=== PATIENT | male | born 1960 | race Caucasian/White ===

== ENCOUNTER 2018-09-23 12:00 | Observation (INO) ==
[2018-09-23 12:11] VITALS: BMI 24.0
--- NOTE | 2018-09-23 12:33 | DR.CP ---
HPI Time Seen Time Seen by Provider: 09/23/18 12:32 PCP Primary Care Physician: YAYO CROSS Complaint Chief Complaint:: BURNING ON LEFT SIDE OF CHEST WITH SMALL SHOOTING PAIN. DENIES HEAVINESS. SOME NAUSEA AT TIMES. BLOOD PRESSURE ELEVATED FOR COUPLE OF DAYS AND PAIN BEEN FOR ABOUT WEEK TO TWO WEEKS. Self Treatment fo Chief Complaint: WENT TO PRIMARY CARE AND GAVE NEW RX FOR BLOOD PRESSURE AND MEDS TO HELP REST AT NIGHT. Source History Provided: Patient Mode of Arrival Mode of Arrival: Ambulatory Timing Onset of Chief Complaint: 09/09/18 Location Chest Pain Radiation Location: None Associated Signs and Symptoms Associated Signs and Symptoms: None PMH PMH Past Medical History: Yes Past Medical History: Anxiety and Hypertension Past Surgical History: No Family History History of Family Medical Conditions: Yes Family Medical History: Heart Failure and Hypertension Social History Type of Tobacco Use: Cigarettes Does any household member use tobacco: No Alcohol Use: Occasionally and DAILY Do you use any recreational Drugs:: No Lives With: Alone and Spouse Lives Where: Home infectious screening In the last 2 months have you had wt loss of >10#?: NO Have you had fever, night sweats or hemotysis?: No Have you traveled outside the country in the last 6 months?: No Isolation: Standard PE Vitals Vitals: Temperature 98.1 F Pulse Rate [Left Brachial] 78 Pulse Rate 85 Respiratory Rate 18 Blood Pressure [Left Arm] 151/75 Blood Pressure 188/93 O2 Sat by Pulse Oximetry 98 General Limitations: No Limitations and Language Barrier General Appearance: Alert and In No Apparent Distress Head Head Exam: Normal Inspection, Atraumatic and Normocephalic Eyes Eye exam: Normal Appearance, PERRL and EOMI ENT ENT Exam: Normal Exam, Normal Oropharynx, Normal External Ear Exam, Mucous Membranes Moist and TM's Normal Bilaterally Chest Chest Inspection: Normal Inspection and Symmetric Chest Wall Rise Respiratory Respiratory Exam: Bilateral: Clear to Auscultation Cardiovascular Cardiovascular Exam: Regular Rate and Normal Rhythm Pulse: Normal and Radial Extremities Extremities Exam: Normal Inspection and Full ROM Back Back Exam: Normal Inspection and Full ROM Neurologic Neurological Exam: Alert, Oriented X3 and CN II-XII Intact Psychiatric Psychiatric Exam: Normal Affect and Normal Mood Skin Skin Exam: Warm, Dry, Intact, Normal Color and Rash COURSE Consultation Called: 13:55 Consultation Comments: Dr. Huizar agreed to admit for further evaluation for chest pain [facility] Labs Reviewed Laboratory Results Reviewed?: Yes Result Diagrams: 09/24/18 04:29 09/23/18 12:40 Laboratory: WBC 7.1 X10^3/uL (3.6-10.0) 09/24/18 04:29 RBC 4.85 X10^6/uL (4.7-6.0) 09/24/18 04:29 Hgb 16.2 g/dL (13.5-18.0) 09/24/18 04:29 Hct 46.9 % (42.0-54.0) 09/24/18 04:29 MCV 96.7 fL (80.0-100.0) 09/24/18 04:29 MCH 33.5 pg (27.0-34.0) 09/24/18 04:29 MCHC 34.6 g/dL (33.0-35.0) 09/24/18 04:29 RDW 13.4 % (11.6-16.5) 09/24/18 04:29 Plt Count 233 X10^3/uL (150.0-450.0) 09/24/18 04:29 MPV 9.3 fL (7.4-11.0) 09/24/18 04:29 Neut % (Auto) 56.8 % (42.0-75.0) 09/24/18 04:29 Lymph % (Auto) 30.0 % (21.0-51.0) 09/24/18 04:29 [place] % (Auto) 10.5 % (0.0-13.0) 09/24/18 04:29 Eos % (Auto) 1.7 % (0.9-2.9) 09/24/18 04:29 Baso % (Auto) 1.0 % (0.2-1.0) 09/24/18 04:29 Neut # (Auto) 4.0 x10^3/uL (2.2-4.8) 09/24/18 04:29 Lymph # (Auto) 2.1 X10^3/uL (1.3-2.9) 09/24/18 04:29 [place] # (Auto) 0.8 x10^3/uL (0.3-0.8) 09/24/18 04:29 Eos # (Auto) 0.1 x10^3/uL (0.0-0.2) 09/24/18 04:29 Baso # (Auto) 0.1 X10^3/uL (0.0-0.1) 09/24/18 04:29 Absolute Nucleated RBC 0.1 /100WBC 09/24/18 04:29 INR Target Range - 09/23/18 12:40 INR 1.12 (0.8-1.3) 09/23/18 12:40 APTT 31.4 SECONDS (22.9-36.5) 09/23/18 12:40 PTT Comment - 09/23/18 12:40 Sodium 136 mmol/L (136-145) 09/23/18 12:40 Corrected Sodium TNP 09/23/18 12:40 Potassium 4.0 mmol/L (3.5-5.1) 09/23/18 12:40 Chloride 97 mmol/L (98-107) L 09/23/18 12:40 Carbon Dioxide 30.5 mmol/L (21-32) 09/23/18 12:40 BUN 9 mg/dL (7-18) 09/23/18 12:40 Creatinine 0.92 mg/dL (0.70-1.30) 09/23/18 12:40 Est GFR (MDRD) Af Amer > 60 (>60) 09/23/18 12:40 Est GFR (MDRD) Non-Af > 60 (>60) 09/23/18 12:40 Glucose 98 mg/dL (65-99) 09/23/18 12:40 Calcium 9.2 mg/dL (8.5-10.1) 09/23/18 12:40 Corrected Calcium TNP 09/23/18 12:40 Magnesium 1.7 mg/dL (1.7-2.9) 09/23/18 12:40 Total Bilirubin 0.50 mg/dL (0.2-1.0) 09/23/18 12:40 AST 15 Units/L (15-37) 09/23/18 12:40 ALT 28 Units/L (12-78) 09/23/18 12:40 Alkaline Phosphatase 95 Units/L (46-116) 09/23/18 12:40 Creatine Kinase 36 Units/L (39-308) L 09/24/18 00:25 CK-MB (CK-2) < 1.0 ng/mL (0-4.0) 09/24/18 00:25 CK/CKMB % Calc 2.8 % (<4) 09/24/18 00:25 Troponin I < 0.02 ng/mL (0-1.5) 09/24/18 00:25 Total Protein 7.8 g/dL (6.4-8.2) 09/23/18 12:40 Albumin 3.9 g/dL (3.4-5.0) 09/23/18 12:40 Globulin 3.9 g/dL (2.5-4.5) 09/23/18 12:40 Albumin/Globulin Ratio 1.0 Ratio (1.1-2.1) L 09/23/18 12:40 Other Results Comments: Chest: No acute cardiopulmonary disease XRAY XRAY Interpreted by: Radiologist Diagnosis Discharge Problem: Chest pain
[2018-09-23 12:52] LABS: BASOPHILS % (AUTO) 0.5 % (0.2-1.0); EOSINOPHILS # (AUTO) 0.1 x10^3/uL (0.0-0.2); EOSINOPHILS % (AUTO) 1.1 % (0.9-2.9); HEMATOCRIT 49.1 % (42.0-54.0); HEMOGLOBIN 17.1 g/dL (13.5-18.0); LYMPHOCYTES # (AUTO) 1.8 X10^3/uL (1.3-2.9); MEAN CORPUSCULAR HEMOGLOBIN 33.7 pg (27.0-34.0); MEAN CORPUSCULAR HGB CONC 34.8 g/dL (33.0-35.0); MEAN PLATELET VOLUME 8.8 fL (7.4-11.0); MONOCYTES # (AUTO) 0.9 x10^3/uL (0.3-0.8); MONOCYTES % (AUTO) 12.5 % (0.0-13.0); NEUTROPHILS # (AUTO) 4.2 x10^3/uL (2.2-4.8); NEUTROPHILS % (AUTO) 59.9 % (42.0-75.0); PLATELET COUNT 228 X10^3/uL (150.0-450.0); RED BLOOD COUNT 5.06 X10^6/uL (4.7-6.0); RED CELL DISTRIBUTION WIDTH 13.7 % (11.6-16.5); WHITE BLOOD COUNT 6.9 X10^3/uL (3.6-10.0)
[2018-09-23 13:06] LABS: BLOOD UREA NITROGEN 9 mg/dL (7-18); CALCIUM 9.2 mg/dL (8.5-10.1); CARBON DIOXIDE 30.5 mmol/L (21-32); CHLORIDE 97 mmol/L (98-107); CREATININE 0.92 mg/dL (0.70-1.30); SODIUM 136 mmol/L (136-145); TROPONIN I < 0.02 ng/mL (0-1.5); eGFR NON BLACK RACES > 60 (>60)
[2018-09-23 13:10] LABS: ALANINE AMINOTRANSFERASE 28 Units/L (12-78); ALBUMIN 3.9 g/dL (3.4-5.0); ALKALINE PHOSPHATASE 95 Units/L (46-116); ASPARTATE AMINO TRANSFERASE 15 Units/L (15-37); CKMB % 2.9 % (<4); CREATINE KINASE 35 Units/L (39-308); CREATINE KINASE MB < 1.0 ng/mL (0-4.0); MAGNESIUM 1.7 mg/dL (1.7-2.9); TOTAL PROTEIN 7.8 g/dL (6.4-8.2)
--- NOTE | 2018-09-23 13:42 | RAD ---
HISTORY: Chest pain Study: Single-view chest Comparison: None Findings: The trachea is midline. The cardiac silhouette is unremarkable. Lungs demonstrate chronic interstitial changes suggesting COPD without focal infiltrate or effusion.. The bony thorax is unremarkable. IMPRESSION: 1. No acute cardiopulmonary disease. Reported By:
[2018-09-23] MEDS ORDERED: NS 1000 ML 1,000 ML ONE (16:00)
[2018-09-23] MEDS: NS 1000 ML 1,000 ML IV SCH (16:01)
[2018-09-23 19:49] LABS: CREATINE KINASE 36 Units/L (39-308); CREATINE KINASE MB < 1.0 ng/mL (0-4.0); TROPONIN I < 0.02 ng/mL (0-1.5)
[2018-09-23 19:54] LABS: CKMB % 2.8 % (<4)
[2018-09-23] MEDS ORDERED: ATIVAN TAB 1 MG PO PRN (20:34)
[2018-09-24 01:13] LABS: CKMB % 2.8 % (<4); CREATINE KINASE 36 Units/L (39-308); CREATINE KINASE MB < 1.0 ng/mL (0-4.0); TROPONIN I < 0.02 ng/mL (0-1.5)
[2018-09-24] MEDS: NS 1000 ML 1,000 ML IV SCH ×4 (03:32→20:41)
[2018-09-24 05:17] LABS: BASOPHILS # (AUTO) 0.1 X10^3/uL (0.0-0.1); EOSINOPHILS # (AUTO) 0.1 x10^3/uL (0.0-0.2); EOSINOPHILS % (AUTO) 1.7 % (0.9-2.9); HEMATOCRIT 46.9 % (42.0-54.0); HEMOGLOBIN 16.2 g/dL (13.5-18.0); LYMPHOCYTES # (AUTO) 2.1 X10^3/uL (1.3-2.9); MEAN CORPUSCULAR HEMOGLOBIN 33.5 pg (27.0-34.0); MEAN CORPUSCULAR HGB CONC 34.6 g/dL (33.0-35.0); MEAN CORPUSCULAR VOLUME 96.7 fL (80.0-100.0); MEAN PLATELET VOLUME 9.3 fL (7.4-11.0); MONOCYTES # (AUTO) 0.8 x10^3/uL (0.3-0.8); MONOCYTES % (AUTO) 10.5 % (0.0-13.0); NEUTROPHILS % (AUTO) 56.8 % (42.0-75.0); PLATELET COUNT 233 X10^3/uL (150.0-450.0); RED BLOOD COUNT 4.85 X10^6/uL (4.7-6.0); RED CELL DISTRIBUTION WIDTH 13.4 % (11.6-16.5); WHITE BLOOD COUNT 7.1 X10^3/uL (3.6-10.0)
[2018-09-24 05:36] LABS: ALANINE AMINOTRANSFERASE 26 Units/L (12-78); ALBUMIN 3.5 g/dL (3.4-5.0); ALKALINE PHOSPHATASE 83 Units/L (46-116); ASPARTATE AMINO TRANSFERASE 14 Units/L (15-37); BLOOD UREA NITROGEN 11 mg/dL (7-18); CALCIUM 8.7 mg/dL (8.5-10.1); CARBON DIOXIDE 27.2 mmol/L (21-32); CHLORIDE 101 mmol/L (98-107); CHOL/HDL RATIO 3.8 (0.0-5.0); CHOLESTEROL 134 mg/dL (0-200); CREATININE 0.67 mg/dL (0.70-1.30); HDL CHOLESTEROL 35 mg/dL (40-60); SODIUM 137 mmol/L (136-145); TRIGLYCERIDES 69 mg/dL (0-150); eGFR NON BLACK RACES > 60 (>60)
[2018-09-24] MEDS ORDERED: K-RIDER 10 MEQ/NS 100 ML 10 MEQ/100 ML BAG IV PRN (06:09)
[2018-09-24] MEDS ORDERED: KLOR-CON PO PRN (06:09)
[2018-09-24] MEDS ORDERED: POTASSIUM CHLORIDE LIQ 20 MEQ UDC PO PRN (06:09)
[2018-09-24] MEDS ORDERED: POTASSIUM CHL 40 MEQ/NS 0.45% 500 ML IV PRN (06:09)
[2018-09-24] MEDS ORDERED: MICRO K EXTEN CAP 10 MEQ PO PRN (06:09)
[2018-09-24] MEDS ORDERED: POTASSIUM CHL 60 MEQ/NS 0.45% 500 ML IV PRN (06:09)
[2018-09-24] MEDS: K-DUR TAB 20 MEQ PO PRN (06:37)
[2018-09-24] MEDS: MAGNESIUM SULFATE 1 GRAM/100 mL PREMIX 1 GM/100 ML BAG IV PRN ×3 (06:41→14:48)
[2018-09-24] MEDS: ASPIRIN PO SCH (09:10)
[2018-09-24] MEDS: NORCO 10/325 TAB PO SCH ×4 (09:10→20:38)
[2018-09-24] MEDS: ZESTORETIC 20/25 MG PO SCH (09:10)
[2018-09-24] MEDS ORDERED: KLONOPIN TAB 1 MG PO PRN (10:33)
[2018-09-24] MEDS: NICOTINE PATCH TD SCH (12:35)
--- NOTE | 2018-09-24 13:39 | PCM.PROG ---
Progress Note - Progress Note for Day of Date of Exam: 09/24/18 - Subjective Subjective: WAS ADMITTED FOR CHEST PAIN RULE OUT ACUTE IA. TODAY, HE IS ALERT AND ORIENTED, LYING IN BED ON MORNING ROUNDS. HE CONTINUES WITH INTERMITTENT CHEST PAIN. HE STATES THAT HE FEELS LIKE HIS BLOOD PRESSURE IS GETTING HIGHER THIS MORNING. ON EXAMINATION, HEART IS REGULAR IN RATE AND RHYT HM. BILATERAL LUNGS ARE CLEAR TO AUSCULTATION. ABDOMEN IS ROUND, SOFT, AND NON- TENDER WITH NORMAL BOWEL SOUNDS NOTED IN ALL QUADRANTS. HIS VITLAS THIS MORNING ARE 98.0-82-18-98%-186/81. LABS WERE OBTAINED. ABNORMAL LAB VALUES INCLUDE THE FOLLOWING: CREATININE 0.67, AST 14, HDL 35. CARDIAC ENZYMES AND EKGS HAVE BEEN WITHIN NORMAL LIMITS. HIS BLOOD PRESSURE MEDICATIONS WERE RESUMED THIS MORNING. WE WILL INCREASE THE METOPROLOL TO 25MG PO DAILY, ADD NORVASC 5MG PO HS. WE WILL OBTAIN AN ECHO AND A CAROTID DOPPLER. OTHERWISE, WE WILL CONTINUE TO MONITOR HIM ON TELEMETRY. WE WILL FOLLOW UP WITH AM LABS. - Past Medical Family Social History Past Med/Fam/Surg Hx: No changes since H&P Allergies: Allergies No Known Drug Allergies Allergy (Verified 09/23/18 12:12) - Review of Systems ROS: No change since H&P - Vital Signs and I&O's Vital Signs: Temperature 98.0 F Pulse Rate [Left Brachial] 62 Pulse Rate 85 Respiratory Rate 20 Blood Pressure [Left Arm] 167/84 Blood Pressure 188/93 O2 Sat by Pulse Oximetry 100 Intake and Output: Intake & Output 09/22/18 09/23/18 09/24/18 09/25/18 11:59 11:59 11:59 11:59 Intake Total 1340 / 1340 Balance 1340 / 1340 - Physical Exam Oriented: Normal Eyes: Normal Ear: Normal Nose: Normal Throat: Normal Respiratory: Normal Cardiovascular: Normal. negative: S3, S4, Murmur : Normal Auscultation: Bowel Sounds: Normal Palpation: Normal Tenderness: Normal Skin: Normal Musculoskeletal: Normal Psychiatric: Normal Mood Description: Calm Affect: Normal Speech Pattern: Clear, Appropriate - Laboratory and Diagnostics Result Diagrams: 09/24/18 04:29 09/24/18 04:29 Labs: Laboratory WBC 7.1 X10^3/uL (3.6-10.0) 09/24/18 04:29 RBC 4.85 X10^6/uL (4.7-6.0) 09/24/18 04:29 Hgb 16.2 g/dL (13.5-18.0) 09/24/18 04:29 Hct 46.9 % (42.0-54.0) 09/24/18 04:29 MCV 96.7 fL (80.0-100.0) 09/24/18 04:29 MCH 33.5 pg (27.0-34.0) 09/24/18 04:29 MCHC 34.6 g/dL (33.0-35.0) 09/24/18 04:29 RDW 13.4 % (11.6-16.5) 09/24/18 04:29 Plt Count 233 X10^3/uL (150.0-450.0) 09/24/18 04:29 MPV 9.3 fL (7.4-11.0) 09/24/18 04:29 Neut % (Auto) 56.8 % (42.0-75.0) 09/24/18 04:29 Lymph % (Auto) 30.0 % (21.0-51.0) 09/24/18 04:29 [place] % (Auto) 10.5 % (0.0-13.0) 09/24/18 04:29 Eos % (Auto) 1.7 % (0.9-2.9) 09/24/18 04:29 Baso % (Auto) 1.0 % (0.2-1.0) 09/24/18 04:29 Neut # (Auto) 4.0 x10^3/uL (2.2-4.8) 09/24/18 04:29 Lymph # (Auto) 2.1 X10^3/uL (1.3-2.9) 09/24/18 04:29 [place] # (Auto) 0.8 x10^3/uL (0.3-0.8) 09/24/18 04:29 Eos # (Auto) 0.1 x10^3/uL (0.0-0.2) 09/24/18 04:29 Baso # (Auto) 0.1 X10^3/uL (0.0-0.1) 09/24/18 04:29 Absolute Nucleated RBC 0.1 /100WBC 09/24/18 04:29 INR Target Range - 09/23/18 12:40 INR 1.12 (0.8-1.3) 09/23/18 12:40 APTT 31.4 SECONDS (22.9-36.5) 09/23/18 12:40 PTT Comment - 09/23/18 12:40 Sodium 137 mmol/L (136-145) 09/24/18 04:29 Corrected Sodium TNP 09/24/18 04:29 Potassium 3.5 mmol/L (3.5-5.1) 09/24/18 04:29 Chloride 101 mmol/L (98-107) 09/24/18 04:29 Carbon Dioxide 27.2 mmol/L (21-32) 09/24/18 04:29 BUN 11 mg/dL (7-18) 09/24/18 04:29 Creatinine 0.67 mg/dL (0.70-1.30) L 09/24/18 04:29 Est GFR (MDRD) Af Amer > 60 (>60) 09/24/18 04:29 Est GFR (MDRD) Non-Af > 60 (>60) 09/24/18 04:29 Glucose 98 mg/dL (65-99) 09/24/18 04:29 Calcium 8.7 mg/dL (8.5-10.1) 09/24/18 04:29 Corrected Calcium TNP 09/24/18 04:29 Magnesium 1.7 mg/dL (1.7-2.9) 09/24/18 04:29 Total Bilirubin 0.50 mg/dL (0.2-1.0) 09/24/18 04:29 AST 14 Units/L (15-37) L 09/24/18 04:29 ALT 26 Units/L (12-78) 09/24/18 04:29 Alkaline Phosphatase 83 Units/L (46-116) 09/24/18 04:29 Creatine Kinase 36 Units/L (39-308) L 09/24/18 00:25 CK-MB (CK-2) < 1.0 ng/mL (0-4.0) 09/24/18 00:25 CK/CKMB % Calc 2.8 % (<4) 09/24/18 00:25 Troponin I < 0.02 ng/mL (0-1.5) 09/24/18 00:25 Total Protein 7.0 g/dL (6.4-8.2) 09/24/18 04:29 Albumin 3.5 g/dL (3.4-5.0) 09/24/18 04:29 Globulin 3.5 g/dL (2.5-4.5) 09/24/18 04:29 Albumin/Globulin Ratio 1.0 Ratio (1.1-2.1) L 09/24/18 04:29 Triglycerides 69 mg/dL (0-150) 09/24/18 04:29 Cholesterol 134 mg/dL (0-200) 09/24/18 04:29 LDL Cholesterol, Calc 85 mg/dL (0-100) 09/24/18 04:29 HDL Cholesterol 35 mg/dL (40-60) L 09/24/18 04:29 Cholesterol/HDL Ratio 3.8 (0.0-5.0) 09/24/18 04:29 - Plan (1) Chest pain Status: Acute Qualifiers: Chest pain type: unspecified Qualified Code(s): R07.9 - Chest pain, unspecified Plan: TELEMETRY, SUPPLEMENTAL OXYGEN, OBTAIN ECHO AND CAROTID DOPPLER, CONTINUE TO MONITOR. (2) Hypertension Status: Acute Qualifiers: Hypertension type: essential hypertension Qualified Code(s): I10 - Essential (primary) hypertension Plan: CONTINUE LISINOPRIL/HCTZ, INCREASE TOPROL XL TO 25MG PO HS, ADD NORVASC 5MG PO HS, CONTINUE TO MONITOR
--- NOTE | 2018-09-24 14:47 | VAS ---
side.Exam: Carotid Doppler exam History: 58-year-old male with hypertension. Evaluate for possible carotid artery stenosis. Comparison: None Findings: Mild degree of plaque is present in both carotid systems. On the right, peak systolic velocities in cm/sec of the right internal and common carotid arteries measure 103 and 136 respectively. The greatest ICA/CCA ratio on the right is 0.76 On the left, peak systolic velocities in cm/sec of the left internal and common carotid arteries measure 99 and 138 respectively. The greatest ICA/CCA ratio on the left is 0.72. Antegrade flow is documented in patent vertebral arteries bilaterally. Impression: No hemodynamically significant carotid stenosis is seen on either Reported By:
[2018-09-24] MEDS ORDERED: TOPROL XL PO SCH ×2 (21:00)
[2018-09-24] MEDS ORDERED: NORVASC TAB 5 MG PO SCH (21:00)
[2018-09-25 05:23] LABS: BASOPHILS # (AUTO) 0.1 X10^3/uL (0.0-0.1); BASOPHILS % (AUTO) 0.9 % (0.2-1.0); EOSINOPHILS # (AUTO) 0.1 x10^3/uL (0.0-0.2); EOSINOPHILS % (AUTO) 2.1 % (0.9-2.9); HEMATOCRIT 44.3 % (42.0-54.0); HEMOGLOBIN 15.2 g/dL (13.5-18.0); LYMPHOCYTES # (AUTO) 2.6 X10^3/uL (1.3-2.9); LYMPHOCYTES % (AUTO) 37.7 % (21.0-51.0); MEAN CORPUSCULAR HEMOGLOBIN 33.6 pg (27.0-34.0); MEAN CORPUSCULAR HGB CONC 34.3 g/dL (33.0-35.0); MEAN CORPUSCULAR VOLUME 97.9 fL (80.0-100.0); MEAN PLATELET VOLUME 9.3 fL (7.4-11.0); MONOCYTES # (AUTO) 0.9 x10^3/uL (0.3-0.8); MONOCYTES % (AUTO) 13.4 % (0.0-13.0); NEUTROPHILS # (AUTO) 3.2 x10^3/uL (2.2-4.8); NEUTROPHILS % (AUTO) 45.9 % (42.0-75.0); PLATELET COUNT 217 X10^3/uL (150.0-450.0); RED BLOOD COUNT 4.52 X10^6/uL (4.7-6.0); RED CELL DISTRIBUTION WIDTH 13.3 % (11.6-16.5)
[2018-09-25 05:26] LABS: ALANINE AMINOTRANSFERASE 26 Units/L (12-78); ALBUMIN 3.3 g/dL (3.4-5.0); ALKALINE PHOSPHATASE 75 Units/L (46-116); ASPARTATE AMINO TRANSFERASE 12 Units/L (15-37); BLOOD UREA NITROGEN 9 mg/dL (7-18); CALCIUM 8.6 mg/dL (8.5-10.1); CARBON DIOXIDE 26.6 mmol/L (21-32); CHLORIDE 103 mmol/L (98-107); COR CA(FOR HYPOALB) 9.2 mg/dL (8.5-10.1); CREATININE 0.72 mg/dL (0.70-1.30); SODIUM 140 mmol/L (136-145); TOTAL PROTEIN 6.5 g/dL (6.4-8.2); eGFR NON BLACK RACES > 60 (>60)
[2018-09-25] MEDS: NS 1000 ML 1,000 ML IV SCH ×2 (05:31→10:18)
[2018-09-25] MEDS: MAGNESIUM SULFATE 1 GRAM/100 mL PREMIX 1 GM/100 ML BAG IV PRN ×2 (06:14→08:24)
[2018-09-25] MEDS: K-DUR TAB 20 MEQ PO PRN (06:14)
[2018-09-25] MEDS: ZESTORETIC 20/25 MG PO SCH (08:23)
[2018-09-25] MEDS: ASPIRIN PO SCH (08:23)
[2018-09-25] MEDS: NORCO 10/325 TAB PO SCH (08:23)
[2018-09-25 10:09] VITALS: BP 156/74
[2018-09-25] MEDS: NICOTINE PATCH TD SCH (10:18)
== END 2018-09-25 12:10 | disposition home or self-care (01) ==
LOC: ER 12:04 → MED/SURG 12:04
PROVIDERS: ADMIT Internal Medicine; ATTEND Internal Medicine
DX: R07.89 Other chest pain; I10 Essential (primary) hypertension; F41.8 Other specified anxiety disorders; Z79.01 Long term (current) use of anticoagulants
CPT/HCPCS: 36415; 71010; 71045; 80053; 80061; 82550; 82553; 83735; 84132; 84484; 85025; 85610; 85730; 93005; 93306; 93880; 96365; 96367; 96374; 99218; 99284; A4222; G0378; J3475; J7030

== ENCOUNTER 2023-01-04 19:27 | Inpatient (IN) ==
--- NOTE | 2023-01-04 19:55 | EKG ---
Test Reason : tachycardia Blood Pressure : */* mmHG Vent. Rate : 119 BPM Atrial Rate : 119 BPM P-R Int : 158 ms QRS Dur : 86 ms QT Int : 320 ms P-R-T Axes : 57 4 59 degrees QTc Int : 450 ms Sinus tachycardia Nonspecific ST and T wave abnormality Abnormal ECG No previous ECGs available Confirmed by Maximilian Palacios ([id number]) on 01/06/2023 6:04:46 PM Referred By: Confirmed By: Maximilian Palacios
[2023-01-04] MEDS ORDERED: ZOFRAN INJ 4 MG VIAL IVP ONE (19:56)
[2023-01-04] MEDS ORDERED: NS 1,000 ML IV 1,000 ML IV ONE ×2 (19:56→20:52)
[2023-01-04] MEDS ORDERED: PROTONIX INJ 40 MG VIAL IVP ONE ×2 (19:56→20:52)
[2023-01-04] MEDS ORDERED: PROTONIX INJ 40 MG VIAL ONE ×2 (19:57→20:56)
[2023-01-04] MEDS ORDERED: NS 1,000 ML IV 1,000 ML ONE ×2 (19:58→20:56)
[2023-01-04] MEDS ORDERED: ZOFRAN INJ 4 MG VIAL ONE (19:58)
[2023-01-04 20:08] LABS: BASOPHILS # (AUTO) 0.1 X10^3/uL (0.0-0.1); BASOPHILS % (AUTO) 0.7 % (0.2-1.0); EOSINOPHILS # (AUTO) 0.1 x10^3/uL (0.0-0.2); EOSINOPHILS % (AUTO) 0.5 % (0.9-2.9); HEMATOCRIT 39.1 % (42.0-54.0); HEMOGLOBIN 13.7 g/dL (13.5-18.0); LYMPHOCYTES # (AUTO) 3.5 X10^3/uL (1.3-2.9); MEAN CORPUSCULAR HEMOGLOBIN 33.8 pg (27.0-34.0); MEAN CORPUSCULAR HGB CONC 34.9 g/dL (33.0-35.0); MEAN CORPUSCULAR VOLUME 96.8 fL (80.0-100.0); MEAN PLATELET VOLUME 8.9 fL (7.4-11.0); MONOCYTES # (AUTO) 1.4 x10^3/uL (0.3-0.8); MONOCYTES % (AUTO) 7.5 % (0.0-13.0); NEUTROPHILS # (AUTO) 13.5 x10^3/uL (2.2-4.8); NEUTROPHILS % (AUTO) 72.3 % (42.0-75.0); PLATELET COUNT 197 X10^3/uL (150.0-450.0); RED BLOOD COUNT 4.04 X10^6/uL (4.7-6.0); RED CELL DISTRIBUTION WIDTH 13.3 % (11.6-16.5); WHITE BLOOD COUNT 18.6 X10^3/uL (3.6-10.0)
[2023-01-04 20:14] LABS: INR 1.17 (0.8-1.3)
[2023-01-04 20:19] LABS: ALANINE AMINOTRANSFERASE 25 Units/L (12-78); ALKALINE PHOSPHATASE 70 Units/L (46-116); AMYLASE 11 Units/L (25-115); ASPARTATE AMINO TRANSFERASE 13 Units/L (15-37); BLOOD UREA NITROGEN 47 mg/dL (7-18); CALCIUM 7.8 mg/dL (8.5-10.1); CARBON DIOXIDE 27.2 mmol/L (21-32); CHLORIDE 97 mmol/L (98-107); COR CA(FOR HYPOALB) 8.6 mg/dL (8.5-10.1); COR NA(FOR HYPERGLY) 134 mmol/L (136-145); CREATININE 1.02 mg/dL (0.70-1.30); GLUCOSE 118 mg/dL (65-99); LIPASE 30 Units/L (73-393); POTASSIUM 3.2 mmol/L (3.5-5.1); SODIUM 134 mmol/L (136-145); TOTAL PROTEIN 5.8 g/dL (6.4-8.2); eGFR NON BLACK RACES > 60 (>60)
--- NOTE | 2023-01-04 20:46 | DR.N/VMALE ---
HPI Time Seen Time Seen by Provider: 01/04/23 19:59 Primary Care Physician Primary Care Physician: JOSÉ Complaints Chief Complaint Doctors Comments: Patient began to have black stools this am patient has had 12-13 stools. Patienrt states that his abdomen is distended. Patient denies:fever,hematemesis, dizziness,headache. Chief Complaint:: PATIENT C/O NAUSEA, WEAKNESS, DARK BLOOD IN STOOL. PATIENT STATES HE HAS BEEN HAVING THESE ISSUES SINCE YESTERDAY WITH THE WEAKNESS AND NAUSEA. PATIENT STAETS THE BLOOD IN THE STOOL STARTED THIS MORNING. COVID-19 Coronavirus risk:travel/contact w/high risk person: No Has patient experienced Coronavirus symptoms: No Source History Provided: Patient Mode of Arrival Mode of Arrival: Ambulatory Timing Onset of Chief Complaint: 01/03/23 PMH PMH Past Medical History: Yes Past Medical History: Anxiety, Migraines and Hypertension Past Surgical History: Yes Past Surgical History Comment: SPLEENECTOMY Family History History of Family Medical Conditions: Yes Family Medical History: Heart Failure and Hypertension Social History Does patient currently use any type of tobacco product: Yes Have you used tobacco products in the last 12 months: Yes Type of Tobacco Use: Cigarettes Does any household member use tobacco: Yes Alcohol Use: Occasionally Do you use any recreational Drugs:: No Lives With: Family Lives Where: Home Travel Risk Coronavirus risk:travel/contact w/high risk person: No Has patient experienced Coronavirus symptoms: No Infectious screening In the last 2 months have you had wt loss of >10#?: NO Have you had fever, night sweats or hemotysis?: No Have you traveled outside the country in the last 6 months?: No Isolation: Standard ROS Review of Systems Constitutional: Weakness Eyes: No Symptoms Reported ENTM: No Symptoms Reported Respiratoy: No Symptoms Reported Cardiovascular: No Symptoms Reported Gastrointestinal/Abdominal: No Symptoms Reported Genitourinary: No Symptoms Reported Neurological: No Symptoms Reported Musculoskeletal: No Symptoms Reported Integumentary: No Symptoms Reported Hematologic/Lymphatic: No Symptoms Reported Endocrine: No Symptoms Reported Psychiatric: No Symptoms Reported All Other Systems: Reviewed and Negative PE Vital Signs Vitals: Vital Signs Temperature 98.1 F Pulse Rate 86 Pulse Rate 81 Pulse Rate 82 Pulse Rate 82 Pulse Rate 78 Pulse Rate 85 Pulse Rate 90 Pulse Rate 97 Pulse Rate 110 Pulse Rate 97 Pulse Rate 95 Pulse Rate 98 Pulse Rate 109 Pulse Rate 119 Pulse Rate 135 Pulse Rate 111 Pulse Rate 118 Pulse Rate 117 Pulse Rate 131 Respiratory Rate 16 Respiratory Rate 14 Respiratory Rate 23 Respiratory Rate 18 Respiratory Rate 19 Respiratory Rate 16 Respiratory Rate 18 Respiratory Rate 19 Respiratory Rate 24 Respiratory Rate 17 Respiratory Rate 16 Respiratory Rate 15 Respiratory Rate 18 Respiratory Rate 16 Respiratory Rate 18 Respiratory Rate 21 Respiratory Rate 17 Respiratory Rate 18 Respiratory Rate 20 Blood Pressure 114/72 Blood Pressure 119/72 Blood Pressure 85/61 Blood Pressure 85/60 Blood Pressure 82/56 Blood Pressure 96/57 Blood Pressure 92/59 Blood Pressure 97/66 Blood Pressure 129/71 Blood Pressure 124/84 Blood Pressure 126/76 Blood Pressure 144/70 O2 Sat by Pulse Oximetry 99 O2 Sat by Pulse Oximetry 100 O2 Sat by Pulse Oximetry 98 O2 Sat by Pulse Oximetry 98 O2 Sat by Pulse Oximetry 94 O2 Sat by Pulse Oximetry 96 O2 Sat by Pulse Oximetry 97 O2 Sat by Pulse Oximetry 97 O2 Sat by Pulse Oximetry 96 O2 Sat by Pulse Oximetry 98 O2 Sat by Pulse Oximetry 97 O2 Sat by Pulse Oximetry 99 O2 Sat by Pulse Oximetry 98 O2 Sat by Pulse Oximetry 99 O2 Sat by Pulse Oximetry 97 O2 Sat by Pulse Oximetry 97 O2 Sat by Pulse Oximetry 96 O2 Sat by Pulse Oximetry 98 O2 Sat by Pulse Oximetry 100 General Limitations: No Limitations General Appearance: Alert and In No Apparent Distress Head Head Exam: Normal Inspection Eyes Eye exam: Normal Appearance ENT ENT Exam: Normal Exam Neck Neck Exam: Normal Inspection Chest Chest Inspection: Normal Inspection Respiratory Respiratory Exam: Normal Lung Sounds Bilat Respiratory Exam: Bilateral: Clear to Auscultation Cardiovascular Cardiovascular Exam: Regular Rate and Normal Rhythm Abdominal Exam Abdominal Exam: Soft, Distention and Hypoactive Bowel Sounds; negative Guarding or Rebound Abdominal Tenderness: Diffuse Rectal Rectal Exam: Heme (+) Stool and Black Stool Exam: Male: Deferred Extremities Extremities Exam: Normal Inspection Back Back Exam: Normal Inspection Neurologic Neurological Exam: Alert and Oriented X3 Psychiatric Psychiatric Exam: Normal Affect and Normal Mood Skin Skin Exam: Warm, Dry, Intact and Normal Color MDM Differential Diagnosis Differential Diagnosis: Considerations may Include:: Bowel Obstruction and Inflammatory BD Differential Diagnosis Comment: Perforated Diverticula,Diverticulitis, Diverticulosis,Upper GI Bleed COURSE Treatment Treatment: Patient was placed in an exam room and iv access was initiated.Patient received NS 1L x 2 boluses for hr in 130's on arrival in the ED,Protonix 80mg iv( occult stool was pos) ,Morphine 2mg iv for pain. Patient has a K 3.2 and was given K 40meq po. WBC is 18.6 and patient received zosyn 3.375g iv.Patient has been accepted by Dr Pantoja for further inpatient service. Dr Pantoja would luike Dr Lucero to be consulted to see the patient tomorrow. [facility] Labs Reviewed Result Diagrams: 01/04/23 19:47 01/04/23 19:47 Laboratory: 01/04/23 20:42 Stool - Final WBC 18.6 X10^3/uL (3.6-10.0) H 01/04/23 19:47 RBC 4.04 X10^6/uL (4.7-6.0) L 01/04/23 19:47 Hgb 13.7 g/dL (13.5-18.0) 01/04/23 19:47 Hct 39.1 % (42.0-54.0) L 01/04/23 19:47 MCV 96.8 fL (80.0-100.0) 01/04/23 19:47 MCH 33.8 pg (27.0-34.0) 01/04/23 19:47 MCHC 34.9 g/dL (33.0-35.0) 01/04/23 19:47 RDW 13.3 % (11.6-16.5) 01/04/23 19:47 Plt Count 197 X10^3/uL (150.0-450.0) 01/04/23 19:47 MPV 8.9 fL (7.4-11.0) 01/04/23 19:47 Neut % (Auto) 72.3 % (42.0-75.0) 01/04/23 19:47 Lymph % (Auto) 19.0 % (21.0-51.0) L 01/04/23 19:47 [place] % (Auto) 7.5 % (0.0-13.0) 01/04/23 19:47 Eos % (Auto) 0.5 % (0.9-2.9) L 01/04/23 19:47 Baso % (Auto) 0.7 % (0.2-1.0) 01/04/23 19:47 Neut # (Auto) 13.5 x10^3/uL (2.2-4.8) H 01/04/23 19:47 Lymph # (Auto) 3.5 X10^3/uL (1.3-2.9) H 01/04/23 19:47 [place] # (Auto) 1.4 x10^3/uL (0.3-0.8) H 01/04/23 19:47 Eos # (Auto) 0.1 x10^3/uL (0.0-0.2) 01/04/23 19:47 Baso # (Auto) 0.1 X10^3/uL (0.0-0.1) 01/04/23 19:47 Absolute Nucleated RBC 0.0 /100WBC 01/04/23 19:47 PT 14.7 SECONDS (11.8-14.3) 01/04/23 19:47 INR Target Range - 01/04/23 19:47 INR 1.17 (0.8-1.3) 01/04/23 19:47 APTT 27.9 SECONDS (22.9-36.5) 01/04/23 19:47 PTT Comment - 01/04/23 19:47 Sodium 134 mmol/L (136-145) L 01/04/23 19:47 Corrected Sodium 134 mmol/L (136-145) L 01/04/23 19:47 Potassium 3.2 mmol/L (3.5-5.1) L 01/04/23 19:47 Chloride 97 mmol/L (98-107) L 01/04/23 19:47 Carbon Dioxide 27.2 mmol/L (21-32) 01/04/23 19:47 BUN 47 mg/dL (7-18) H 01/04/23 19:47 Creatinine 1.02 mg/dL (0.70-1.30) 01/04/23 19:47 Est GFR (MDRD) Af Amer > 60 (>60) 01/04/23 19:47 Est GFR (MDRD) Non-Af > 60 (>60) 01/04/23 19:47 Glucose 118 mg/dL (65-99) H 01/04/23 19:47 Calcium 7.8 mg/dL (8.5-10.1) L 01/04/23 19:47 Corrected Calcium 8.6 mg/dL (8.5-10.1) 01/04/23 19:47 Total Bilirubin 0.70 mg/dL (0.2-1.0) 01/04/23 19:47 AST 13 Units/L (15-37) L 01/04/23 19:47 ALT 25 Units/L (12-78) 01/04/23 19:47 Alkaline Phosphatase 70 Units/L (46-116) 01/04/23 19:47 Total Protein 5.8 g/dL (6.4-8.2) L 01/04/23 19:47 Albumin 3.0 g/dL (3.4-5.0) L 01/04/23 19:47 Globulin 2.8 g/dL (2.5-4.5) 01/04/23 19:47 Albumin/Globulin Ratio 1.1 Ratio (1.1-2.1) 01/04/23 19:47 Amylase 11 Units/L (25-115) L 01/04/23 19:47 Lipase 30 Units/L (73-393) L 01/04/23 19:47 Specimen Type Clean catch urine 01/04/23 21:34 Urine Color Yellow (YELLOW) 01/04/23 21:34 Urine Appearance Clear (CLEAR) 01/04/23 21:34 Urine pH 6.0 (5.0 - 8.0) 01/04/23 21:34 Ur Specific [place] 1.010 (1.000-1.030) 01/04/23 21:34 Urine Protein 1+ (NEGATIVE) 01/04/23 21:34 Urine Glucose (UA) Negative (NEGATIVE) 01/04/23 21:34 Urine Ketones Negative (NEGATIVE) 01/04/23 21:34 Urine Blood Negative (NEGATIVE) 01/04/23 21:34 Urine Nitrite Negative (NEGATIVE) 01/04/23 21:34 Urine Bilirubin Negative (NEGATIVE) 01/04/23 21:34 Urine Urobilinogen Normal (NORMAL) 01/04/23 21:34 Ur Leukocyte Esterase Negative (NEGATIVE) 01/04/23 21:34 Urine RBC 0-2 /HPF (0-3) 01/04/23 21:34 Urine WBC None seen /HPF (0-5) 01/04/23 21:34 Ur Squamous Epith Cells Rare /HPF (NEGATIVE) 01/04/23 21:34 Urine Bacteria Negative /HPF (NEGATIVE) 01/04/23 21:34 Ur Culture Indicated? No/not indicated 01/04/23 21:34 Stl Occult Blood (IFOB) Positive (NEGATIVE) A 01/04/23 20:42 Stl C. diff Tox B Gene Negative (NEGATIVE) 01/04/23 20:42 Stl C. diff [id number] Presumptive negative (NEGATIVE) 01/04/23 20:42 SARS-CoV-2 (PCR) Negative (NEGATIVE) 01/04/23 22:28 Cryptosporid parvum Ag Negative (NEGATIVE) 01/04/23 20:42 Giardia lamblia Ag Negative (NEGATIVE) 01/04/23 20:42 Influenza Type A (PCR) Negative (NEGATIVE) 01/04/23 22:28 Influenza Type B (PCR) Negative (NEGATIVE) 01/04/23 22:28 RSV (PCR) Negative (NEGATIVE) 01/04/23 22:28 Opioid Opioid Risk Tool Age (Isidro box if 16-45): No History of Preadolescent Sexual Abuse: No Total: 0 Total Score Risk Category: Low Risk Copyright: Dean KHANNA predicting aberrant behaviors Discharge Plan Diagnosis Discharge Problem: Acute gastrointestinal hemorrhage, Leukocytosis, Diverticulosis of colon Discharge Plan Patient Disposition: 09 ADMITTED INPATIENT Condition: Stable Prescriptions: No Action lisinopril-hydrochlorothiazide 20-25 mg Tablet 1 tab PO DAILY hydrocodone-acetaminophen 10-325 mg tablet 1 tab PO QID aspirin 325 mg Tablet 325 mg PO DAILY Qty: 90 3RF Rx Instructions: TAKE ONE TABLET DAILY lisinopril 20 mg tablet 1 tab PO HS hydrocodone-acetaminophen 10-325 mg tablet 1 tab PO QID cepjmmnsds-wtxiagwpilvvn-fent 50-325-40 mg tablet 1 tab PO Q4-6H PRN amlodipine 10 mg tablet 1 tab PO QPM promethazine 25 mg tablet 1 tab PO Q6H PRN metoprolol succinate 25 mg tablet extended release 24 hr 1 tab PO QDAY clonazepam [Klonopin] 2 mg tablet 2 mg PO HS Rx Instructions: TAKE ONE TABLET TWICE A DAY NEEDED FOR ANXIETY metoprolol succinate 25 mg tablet extended release 24 hr 25 mg PO DAILY Rx Instructions: TAKE ONE TABLET AT BEDTIME Health Concerns: Post Hospitalization: new medications and changes needed to prevent readmission or further decline. Pt educated and given instructions on all concerns. Plan of Treatment: Continue with present treatment and follow up plan. Pt is to keep follow up appointment as instructed and take medications as ordered. Orders to Discharge Patient Discharge Orders: Transfer (Routine); Ordered 01/04/23 Ordered By: Alva Parker Follow ups/Referrals Follow ups/Referrals: Chaitanya Marcelo [Primary Care Provider] - 3 days Instructions Stand Alone Forms: Post Hospital Follow Up Care
[2023-01-04] MEDS ORDERED: MORPHINE SULFATE INJ 2 MG INJ IVP ONE (20:52)
[2023-01-04] MEDS ORDERED: MORPHINE SULFATE INJ 2 MG INJ ONE (20:55)
[2023-01-04 21:19] LABS: CRYPTOSPORIDIUM PARVUM ANTIGEN NEGATIVE (NEGATIVE); GIARDIA LAMBLIA ANTIGEN NEGATIVE (NEGATIVE)
[2023-01-04 21:45] LABS: BILIRUBIN,URINE NEGATIVE (NEGATIVE); BLOOD/HEMOGLOBIN,URINE NEGATIVE (NEGATIVE); GLUCOSE, URINE NEGATIVE (NEGATIVE); KETONES,URINE NEGATIVE (NEGATIVE); LEUKOCYTE ESTERASE ,URINE NEGATIVE (NEGATIVE); NITRITES,URINE NEGATIVE (NEGATIVE); PROTEIN,URINE 1+ (NEGATIVE); UROBILINOGEN,URINE NORMAL (NORMAL)
[2023-01-04 21:52] LABS: APPEARANCE,URINE CLEAR (CLEAR); BACTERIA,URINE NEGATIVE /HPF (NEGATIVE); COLOR,URINE YELLOW (YELLOW); RBC,URINE 0-2 /HPF (0-3); SQUAMOUS EPITHELIAL CELL,UR RARE /HPF (NEGATIVE)
--- NOTE | 2023-01-04 22:24 | CT ---
PROCEDURE: CT Abdomen and Pelvis with Contrast .HISTORY: Hematochezia and asthenia with nausea.TECHNIQUE: Axial images were performed through the abdomen and pelvis with the administration of IV contrast with multiplanar reformations . Oral contrast was not administered. 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 Liver, adrenals, pancreas show no abnormality.Kidneys show no masses or obstruction.Normal biliary tract.No ascites or pneumoperitoneum.Mild atherosclerosis aorta.No lymphadenopathy.Mild colonic diverticulosis. No bowel obstruction or inflammation. Normal appendix.Pelvis shows no masses or free fluid and normal urinary bladder.No acute bony abnormality.IMPRESSION:1. Colonic diverticulosis.2. No bowel inflammation.3. Previous splenectomy4. No other significant abnormality identified.Electronically signed by: Rafiq Lopez (Jan 04, 2023 22:22:21)
[2023-01-04] MEDS ORDERED: K-DUR TAB 20 MEQ PO ONE ×2 (23:24)
[2023-01-04] MEDS ORDERED: ZOSYN VIAL 3.375 GRAMS 3.375 G in NS 100 ML IV 100 ML IV ONE (23:30)
[2023-01-04] MEDS ORDERED: NS 100 ML IV 100 ML ONE (23:32)
[2023-01-04] MEDS ORDERED: ZOSYN VIAL 3.375 GRAMS IV ONE (23:32)
[2023-01-05] MEDS ORDERED: PHENERGAN TAB 25 MG PO PRN (00:33)
--- NOTE | 2023-01-05 00:42 | EKG ---
Test Reason : weakness Blood Pressure : */* mmHG Vent. Rate : 91 BPM Atrial Rate : 91 BPM P-R Int : 168 ms QRS Dur : 88 ms QT Int : 360 ms P-R-T Axes : 51 3 31 degrees QTc Int : 442 ms Normal sinus rhythm Nonspecific ST abnormality Abnormal ECG When compared with ECG of 04-JAN-2023 19:43, (Unconfirmed) Nonspecific T wave abnormality no longer evident in Lateral leads Confirmed by Maximilian Palacios ([id number]) on 01/06/2023 6:04:29 PM Referred By: Confirmed By: Maximilian Palacios
[2023-01-05] MEDS: FIORICET TAB PO PRN (00:58)
[2023-01-05 01:22] VITALS: BMI 26.1
[2023-01-05] MEDS ORDERED: MORPHINE SULFATE INJ 2 MG INJ ONE (04:08)
[2023-01-05] MEDS ORDERED: MORPHINE SULFATE INJ 2 MG INJ IVP SCH (05:00)
[2023-01-05 06:16] LABS: BASOPHILS # (AUTO) 0.1 X10^3/uL (0.0-0.1); BASOPHILS % (AUTO) 0.7 % (0.2-1.0); EOSINOPHILS # (AUTO) 0.1 x10^3/uL (0.0-0.2); EOSINOPHILS % (AUTO) 1.2 % (0.9-2.9); HEMATOCRIT 28.8 % (42.0-54.0); LYMPHOCYTES # (AUTO) 3.8 X10^3/uL (1.3-2.9); LYMPHOCYTES % (AUTO) 30.7 % (21.0-51.0); MEAN CORPUSCULAR HEMOGLOBIN 34.2 pg (27.0-34.0); MEAN CORPUSCULAR HGB CONC 34.9 g/dL (33.0-35.0); MEAN CORPUSCULAR VOLUME 98.1 fL (80.0-100.0); MONOCYTES % (AUTO) 8.4 % (0.0-13.0); NEUTROPHILS # (AUTO) 7.3 x10^3/uL (2.2-4.8); PLATELET COUNT 159 X10^3/uL (150.0-450.0); RED BLOOD COUNT 2.93 X10^6/uL (4.7-6.0); RED CELL DISTRIBUTION WIDTH 13.4 % (11.6-16.5); WHITE BLOOD COUNT 12.3 X10^3/uL (3.6-10.0)
[2023-01-05 06:21] LABS: ALANINE AMINOTRANSFERASE 19 Units/L (12-78); ALBUMIN 2.3 g/dL (3.4-5.0); ALKALINE PHOSPHATASE 49 Units/L (46-116); ASPARTATE AMINO TRANSFERASE 12 Units/L (15-37); BLOOD UREA NITROGEN 46 mg/dL (7-18); CALCIUM 7.2 mg/dL (8.5-10.1); CARBON DIOXIDE 29.3 mmol/L (21-32); CHLORIDE 103 mmol/L (98-107); COR CA(FOR HYPOALB) 8.6 mg/dL (8.5-10.1); CREATININE 1.08 mg/dL (0.70-1.30); GLUCOSE 93 mg/dL (65-99); POTASSIUM 3.6 mmol/L (3.5-5.1); SODIUM 138 mmol/L (136-145); TOTAL PROTEIN 4.5 g/dL (6.4-8.2); eGFR NON BLACK RACES > 60 (>60)
[2023-01-05 06:43] LABS: BAND NEUTROPHILS % 3 % (0-10)
[2023-01-05 06:44] LABS: PLATELET MORPHOLOGY COMMENT NORMAL (NORMAL)
[2023-01-05] MEDS ORDERED: PHARMACY CONSULT - POTASSIUM & MAGNESIUM XX SCH (07:00)
[2023-01-05] MEDS ORDERED: K-DUR TAB 20 MEQ PO SCH (08:00)
[2023-01-05] MEDS ORDERED: NS 1,000 ML IV 1,000 ML ONE (08:12)
[2023-01-05] MEDS ORDERED: NS 1,000 ML IV 1,000 ML IV ONE (08:19)
[2023-01-05] MEDS ORDERED: PROTONIX INJ 40 MG VIAL IVP SCH (09:00)
[2023-01-05] MEDS ORDERED: NORCO 10/325 TAB PO SCH (09:00)
--- NOTE | 2023-01-05 09:58 | DR.H&P ---
H&P - History & Physical for Day of: H&P Date: 01/05/23 - Chief Complaint Chief Complaint: BLOOD IN STOOL, NAUSEA, WEAKNESS - History of Present Illness History of Present Illness: IS A 62 YEAR OLD PATIENT OF OURS. HE PRESENTED TO THE ER WITH COMPLAINTS OF NAUSEA, WEAKNESS, AND DARK STOOLS. PATIENT REPORTS THAT HE HAS HAD 12-13 EPISODES OF DASHAWN, TARRY STOOLS IN THE PAST TWO DAYS. HE REPORTS THAT THE NAUSEA AND WEAKNESS STARTED EARLIER IN THE DAY, PRIOR TO ARRIVING AT THE ER. HE DENIES FEVER, HEMATEMESIS, DIZZINESS, OR HEADACHE. HE HAS A PMH OF ANXIETY, MIGRAINES, HTN, AND SPLEENECTOMY. ON EXAMINATION, HIS ABDOMEN IS NOTED TO BE DISTENDED. HE REPORTS DIFFUSE ABDOMINAL CRAMPING AND DISCOMFORT. ON ARRIVAL TO THE HOSPITAL, HIS VITALS WERE: 98.3-579-57-100%-144/70. LABS WERE OBTAINED. WBC 18.6, RBC 4.04, HGB 13.7, HCT 39.1, PLT COUNT 197, SODIUM 134, POTASSIUM 3.2, CHLORIDE 97, BUN 47, CREATININE 1.02, GLUCOSE 118, CALCIUM 7.8, AST 13, ALT 25, ALK PHOS 70, TOTAL PROTEIN 5.8, ALBUMIN 3.0, PT 14.7, INR 1.17, . STOOL WAS POSITIVE FOR OCCULT BLOOD. STOOL FOR C-DIFF, OVA AND PARASITES NEGATIVE. COVID, INFLUENZA, AND RSV NEGATIVE. STOOL AND BLOOD CULTURES WERE SET UP. URINALYSIS WAS OBTAINED AND REVEALED: WBC NONE SEEN, RBC 0-2, BACTERIA NEGATIVE, LEUKOCYTES NEGATIVE. AN ABDOMEN/PELVIS CT WITH CONTRAST WAS OBTAINED AND REVEALED: 1. Colonic diverticulosis. 2. No bowel inflammation. 3. Previous splenectomy 4. No other significant abnormality identified. EKG REVEALED: SINUS TACHYCARDIA WITH HR 119 BPM. WHILE IN THE ER, PATIENT HAD FOUR BOWEL MOVEMENTS WITH COPIOUS AMOUNTS OF BLOOD. HE WAS NOTED TO HAVE A DROP IN BLOOD PRESSURE TO 90s/50s. IN THE ER, HE WAS GIVEN TWO ONE LITER NORMAL SALINE BOLUSES, PROTONIX 80MG IV, MORPHINE 2MG IV X 1, POTASSIUM CHLORIDE 40MEQ PO, AND ZOSYN 3.375G IV X 1 DOSE. HE WAS ADMITTED TO THE HOSPITAL FOR FURTHER EVALUATION AND TREATMENT OF GI HEMORRHAGE. HE WAS STARTED ON NORMAL SALINE AT 75 ML/HR, PEPCID 40MG IV BID, PROTONIX 40MG IV BID, MORPHINE 2MG IV Q4H PRN. HIS HOME MEDICATIONS OF FIORICET, KLONOPIN, PHENERGAN, AND NORCO WERE RESUMED. WE WILL HOLD HIS BLOOD PRESSURE MEDICATIONS DUE TO HYPOTENSION. WE WILL CONSULT , GENERAL SURGEON, FOR POSSIBLE ENDOSCOPY. OTHERWISE, WE WILL FOLLOW-UP WITH AM LABS AND CONTINUE TO MONITOR. TIME SPENT ON CLINICAL ASSESSMENT, REVIEWING LABS AND IMAGING, DECISION MAKING, AND DOCUMENTATION GREATER THAN 75 MINUTES. - Past Medical History Past Medical History: Hypertension, Anxiety, Migraines - Past Surgical History Surgical History: Spleenectomy - Family History Family Medical History: Hypertension - Social History Does patient currently use any type of tobacco product: Yes Have you used tobacco products in the last 12 months: Yes Type of Tobacco Use: Cigarettes How many years tobacco product used: 10 Does any household member use tobacco: Yes Alcohol Use: None Drug Use: None - Review of Systems Constitutional: Weakness Eyes: No Symptoms Reported ENT: No Symptoms Reported Respiratory: No Symptoms Reported Cardiovascular: No Symptoms Reported Gastrointestinal: Nausea, Abdominal Pain, Melena, Hematochezia Genitourinary: No Symptoms Reported Musculoskeletal: No Symptoms Reported Skin: No Symptoms Reported Neurological: Weakness - Physical Exam Vital Signs: Vital Signs Temperature 98.5 F Temperature 98.4 F Pulse Rate [Right Radial] 84 Pulse Rate [Right Radial] 92 Respiratory Rate 18 Respiratory Rate 18 Respiratory Rate 18 Respiratory Rate 22 Respiratory Rate 18 Blood Pressure [Left Arm] 106/72 Blood Pressure [Left Arm] 89/50 Blood Pressure [Left Arm] 108/58 O2 Sat by Pulse Oximetry 97 O2 Sat by Pulse Oximetry 99 Oriented: Normal Eyes: Normal Ear: Normal Nose: Normal Throat: Normal Respiratory: Diminished Throughout Cardiovascular: Tachycardia : Normal Auscultation: Bowel Sounds: Normal Palpation: Normal Tenderness: Diffuse, Mild Skin: Normal Musculoskeletal: Normal Psychiatric: Normal Mood Description: Calm Affect: Normal Speech Pattern: Clear - Assessment/Plan (1) Acute gastrointestinal hemorrhage Status: Acute Plan: ADMIT, CONSULT FOR ENDOSCOPY, NORMAL SALINE AT 75 ML/HR, PEPCID 40MG IV BID, PROTONIX 40MG IV BID, MORPHINE 2MG IV Q4H PRN (2) Hypotension Qualifiers: Hypotension type: hypotension due to hypovolemia Qualified Code(s): I95.89 - Other hypotension; E86.1 - Hypovolemia Status: Acute Plan: IV FLUIDS, HOLD ANTIHYPERTENSIVES AT THIS TIME (3) Abdominal pain Qualifiers: Abdominal location: generalized Qualified Code(s): R10.84 - Generalized abdominal pain Status: Acute (4) Nausea Status: Acute (5) Generalized anxiety disorder Status: Chronic Plan: CONTINUE TO MONITOR (6) History of migraine Status: Chronic Plan: CONTINUE FIORICET (7) Insomnia Qualifiers: Insomnia type: primary Qualified Code(s): F51.01 - Primary insomnia Status: Chronic Plan: CONTINUE KLONOPIN - Allergies Allergies/Adverse Reactions: Allergies Allergy/AdvReac Type Severity Reaction Status Date / Time No Known Drug Allergies Allergy Verified 09/23/18 12:12 - Medications Home Medications: Home Medications Medication Instructions Recorded Confirmed hydrocodone 10 mg-acetaminophen 1 tab PO QID 09/23/18 01/04/23 325 mg tablet lisinopril 20 1 tab PO DAILY 09/23/18 01/04/23 mg-hydrochlorothiazide 25 mg tablet amlodipine 10 mg tablet 1 tab PO QPM 01/04/23 01/04/23 [id number] 1 tab PO Q4-6H PRN 01/04/23 01/04/23 50 mg-325 mg-40 mg tablet clonazepam 2 mg tablet (Klonopin) 2 mg PO HS 01/04/23 01/04/23 hydrocodone 10 mg-acetaminophen 1 tab PO QID 01/04/23 01/04/23 325 mg tablet lisinopril 20 mg tablet 1 tab PO HS 01/04/23 01/04/23 metoprolol succinate 25 mg 1 tab PO QDAY 01/04/23 01/04/23 tablet,extended release 24 hr metoprolol succinate 25 mg 25 mg PO DAILY 01/04/23 01/04/23 tablet,extended release 24 hr promethazine 25 mg tablet 1 tab PO Q6H PRN 01/04/23 01/04/23 Previous Rx's Medication Instructions Recorded aspirin 325 mg tablet 325 mg PO DAILY #90 tabs 09/25/18
[2023-01-05] MEDS ORDERED: FLEET ENEMA ADULT PR ONE (10:02)
[2023-01-05] MEDS: PEPCID 20 MG VIAL 20 MG in NS 50 ML IV 50 ML IV SCH ×2 (10:20→21:22)
[2023-01-05] MEDS: NORCO 10/325 TAB PO SCH ×4 (10:25→21:21)
[2023-01-05] MEDS: NS 1,000 ML IV 1,000 ML IV SCH (10:26)
[2023-01-05] MEDS ORDERED: D5 LR 1,000 ML 1,000 ML IV ONE (11:12)
[2023-01-05] MEDS ORDERED: DIPRIVAN VIAL 20 ML ONE ×3 (11:14→11:45)
[2023-01-05] MEDS ORDERED: NEO-SYNEPHRINE INJ ONE (11:34)
[2023-01-05] MEDS: PROTONIX INJ 40 MG VIAL 80 MG in NS 100 ML IV 80 ML IV SCH ×2 (12:49→21:21)
[2023-01-05] MEDS: REQUIP PO SCH ×2 (13:41→21:23)
[2023-01-05] MEDS ORDERED: KLONOPIN TAB 1 MG PO SCH (21:00)
[2023-01-06] MEDS: NS 1,000 ML IV 1,000 ML IV SCH (01:51)
[2023-01-06] MEDS: FIORICET TAB PO PRN (03:29)
[2023-01-06 04:30] VITALS: PULSE 86
[2023-01-06 06:22] LABS: BASOPHILS % (AUTO) 0.1 % (0.2-1.0); EOSINOPHILS # (AUTO) 0.3 x10^3/uL (0.0-0.2); EOSINOPHILS % (AUTO) 5.3 % (0.9-2.9); HEMATOCRIT 22.3 % (42.0-54.0); LYMPHOCYTES # (AUTO) 0.8 X10^3/uL (1.3-2.9); LYMPHOCYTES % (AUTO) 12.8 % (21.0-51.0); MEAN CORPUSCULAR HEMOGLOBIN 34.5 pg (27.0-34.0); MEAN CORPUSCULAR HGB CONC 35.3 g/dL (33.0-35.0); MEAN CORPUSCULAR VOLUME 97.6 fL (80.0-100.0); MEAN PLATELET VOLUME 8.9 fL (7.4-11.0); MONOCYTES # (AUTO) 0.6 x10^3/uL (0.3-0.8); MONOCYTES % (AUTO) 9.5 % (0.0-13.0); NEUTROPHILS # (AUTO) 4.7 x10^3/uL (2.2-4.8); NEUTROPHILS % (AUTO) 72.3 % (42.0-75.0); PLATELET COUNT 130 X10^3/uL (150.0-450.0); RED BLOOD COUNT 2.28 X10^6/uL (4.7-6.0); RED CELL DISTRIBUTION WIDTH 13.4 % (11.6-16.5); WHITE BLOOD COUNT 6.5 X10^3/uL (3.6-10.0)
[2023-01-06 06:44] LABS: ALANINE AMINOTRANSFERASE 20 Units/L (12-78); ALBUMIN 2.3 g/dL (3.4-5.0); ALKALINE PHOSPHATASE 43 Units/L (46-116); ASPARTATE AMINO TRANSFERASE 16 Units/L (15-37); BLOOD UREA NITROGEN 15 mg/dL (7-18); CALCIUM 7.2 mg/dL (8.5-10.1); CARBON DIOXIDE 26.7 mmol/L (21-32); CHLORIDE 108 mmol/L (98-107); COR CA(FOR HYPOALB) 8.6 mg/dL (8.5-10.1); CREATININE 0.62 mg/dL (0.70-1.30); GLUCOSE 97 mg/dL (65-99); MAGNESIUM 1.8 mg/dL (2.0-2.9); POTASSIUM 3.6 mmol/L (3.5-5.1); SODIUM 139 mmol/L (136-145); TOTAL PROTEIN 4.4 g/dL (6.4-8.2); eGFR NON BLACK RACES > 60 (>60)
[2023-01-06 06:53] LABS: HEMOGLOBIN 7.9 g/dL (13.5-18.0)
[2023-01-06] MEDS ORDERED: KLOR-CON PO SCH (07:30)
[2023-01-06] MEDS ORDERED: PHARMACY CONSULT - POTASSIUM & MAGNESIUM XX SCH (08:00)
[2023-01-06 08:38] VITALS: TEMP 98.1; O2SAT 100
[2023-01-06] MEDS: NORCO 10/325 TAB PO SCH ×2 (08:51→13:30)
[2023-01-06] MEDS: PEPCID 20 MG VIAL 20 MG in NS 50 ML IV 50 ML IV SCH (08:52)
[2023-01-06] MEDS: REQUIP PO SCH (08:52)
[2023-01-06 13:30] VITALS: BP 171/75
[2023-01-06 14:01] VITALS: RESP 18
== END 2023-01-06 13:50 | disposition home or self-care (01) | DRG 379 ==
LOC: ER 19:27 → MED/SURG 01-05 00:07
PROVIDERS: ADMIT Family Medicine; ATTEND Internal Medicine
DX: K29.80 Duodenitis without bleeding; R10.84 Generalized abdominal pain; D12.3 Benign neoplasm of transverse colon; Z90.81 Acquired absence of spleen; R10.13 Epigastric pain; K92.1 Melena; F41.8 Other specified anxiety disorders; K64.0 First degree hemorrhoids; I10 Essential (primary) hypertension; I95.89 Other hypotension; R53.1 Weakness; F51.01 Primary insomnia; K57.30 Diverticulosis of large intestine without perforation or abscess without bleeding